=== PATIENT | male | born 1960 | race Caucasian/White ===

== ENCOUNTER 2020-12-01 08:03 | Outpatient (CLI) | payer OTHER ==
--- NOTE | 2020-12-01 15:00 | XRAY Report ---
PROCEDURE: Knee Standing BILAT INDICATIONS: BILATERAL KNEE JOINT PAIN TECHNIQUE: 3 views of the right knee, and 3 views of the left knee. COMPARISON: None. FINDINGS: Bones: No acute fractures or dislocations. No suspicious bony lesions. Joint spaces appear normal with weightbearing. There is mild bilateral medial compartment narrowing. Chondrocalcinosis is noted on the right. Minimal appearance of periarticular osteophytes are present. No erosions are present. Minimal to mild bilateral patellofemoral compartment narrowing is present. Soft tissues: No knee joint effusions. No suspicious soft tissue calcification. IMPRESSION: Early degenerative changes suggestive of arthritis most notable in the medial and patellofemoral comp artments bilaterally. Reviewed by: Delaney Hernández MD on 12/01/2020 2:59 PM PST Approved by: Delaney Hernández MD on 12/01/2020 2:59 PM PST Station ID: [id number]
== END 2020-12-01 23:59 | disposition home or self-care (01) ==
LOC: DI.N 08:03
PROVIDERS: ATTEND Physician Assistant
DX: M17.0 Bilateral primary osteoarthritis of knee (principal)

== ENCOUNTER 2020-12-22 15:27 | Outpatient (CLI) | payer OTHER ==
--- NOTE | 2020-12-23 08:57 | Mammography Report ---
MALE BILATERAL DIGITAL SCREENING MAMMOGRAM 3D/2D: 12/22/2020 CLINICAL: Routine screening. Comparison is made to exams dated: 01/01/2019 mammogram and 11/14/2016 mammogram - [facility]. No significant masses, calcifications, or other findings are seen in either breast. There has been no significant interval change. IMPRESSION: NEGATIVE There is no mammographic evidence of malignancy. A 1 year screening mammogram is recommended. This exam was interpreted at Station ID: [id number]. NOTE: For mammograms, a report in lay terms will be sent to the patient. Approximately 15% of breast malignancies will not be visualized mammographically. In the management of a palpable breast mass, a negative mammogram must not discourage biopsy of a clinically suspicious lesion. Electronically Signed By: Juan Jose bruce/ana:12/22/2020 16:21:50 ACR BI-RADS Category 1: Negative 3341F PARENCHYMAL PATTERN: (A) - The breast(s) demonstrate(s) scattered fibroglandular densities. BI-RADS CATEGORY: (1) - 1 RECOMMENDATION: (ANNUAL) - Recommend routine annual screening mammography. [id number] 1 year screening LATERALITY: (B)
== END 2020-12-22 15:28 | disposition home or self-care (01) ==
LOC: DI.N 15:27 → EDSEX 15:27 → DI.N 15:28
PROVIDERS: ATTEND Internal Medicine
DX: Z12.31 Encounter for screening mammogram for malignant neoplasm of breast (principal)

== ENCOUNTER 2022-01-25 15:31 | Outpatient (CLI) | payer OTHER ==
--- NOTE | 2022-01-26 09:34 | Mammography Report ---
BILATERAL DIGITAL SCREENING MAMMOGRAM 3D/2D: 01/25/2022 CLINICAL: Family history of breast cancer. Routine screening. Comparison is made to exams dated: 12/22/2020 mammogram - [facility], 01/01/2019 mamm ogram, and 11/14/2016 mammogram - [facility]. There are scattered fibroglandular elemen ts in both breasts. No significant masses, calcifications, or other findings are seen in either breast. There has been no significant interval change. IMPRESSION: NEGATIVE There is no mammographic evidence of malignancy. A 1 year screening mammogram is recommended. This exam was interpreted at Station ID: [id number]. NOTE: For mammograms, a report in lay terms will be sent to the patient. Approximately 15% of breast malignancies will not be visualized mammographically. In the management of a palpable breast mass, a negative mammogram must not discourage biopsy of a clinically suspicious lesion. Electronically Signed By: Lizett joy/ana:01/25/2022 17:28:27 ACR BI-RADS Category 1: Negative 3341F PARENCHYMAL PATTERN: (A) - The breast(s) demonstrate(s) scattered fibroglandular densities. BI-RADS CATEGORY: (1) - 1 RECOMMENDATION: (ANNUAL) - Recommend routine annual screening mammography. [id number] 1 year screening LATERALITY: (B)
== END 2022-01-25 15:32 | disposition home or self-care (01) ==
LOC: DI.N 15:31
DX: Z12.31 Encounter for screening mammogram for malignant neoplasm of breast (principal); Z80.3 Family history of malignant neoplasm of breast

== ENCOUNTER 2022-08-24 11:42 | Outpatient (CLI) | payer OTHER | END 2022-08-24 11:43 | disposition critical access hospital (66) | LOC: EMS 11:42 | DX: R40.4 Transient alteration of awareness (principal); R53.83 Other fatigue; R53.1 Weakness; R21 Rash and other nonspecific skin eruption; L29.9 Pruritus, unspecified | CPT/HCPCS: A0425; A0429 ==

== ENCOUNTER 2023-09-26 15:51 | Outpatient (CLI) | payer OTHER ==
--- NOTE | 2023-09-27 15:52 | Mammography Report ---
BILATERAL DIGITAL SCREENING MAMMOGRAM 3D/2D: 09/26/2023 CLINICAL: Routine screening. Family history of breast cancer. Comparison is made to exams dated: 01/25/2022 mammogram, 12/22/2020 mammogram - [facility], 01/01/2019 mammogram, and 11/14/2016 mammogram - [facility]. There are scattered areas of fibroglandular density in both breasts (category b / 25%-50% glandular t issue). There are benign vascular calcifications in both breasts. No significant masses, calcifications, or other findings are seen in either breast. There has been no significant interval change. IMPRESSION: BENIGN There is no mammographic evidence of malignancy. A 1 year screening mammogram is recommended. Based on the Tyrer Cuzick model (a risk assessment model) the patients lifetime risk is 10.4% and he r 10 year risk is 4.9%. According to the ACR, ACS, and NCCN guidelines, an annual breast MRI exam nicol ng with mammogram is recommended if the patients lifetime risk is 20% or greater. This exam was interpreted at Station ID: [id number]. NOTE: For mammograms, a report in lay terms will be sent to the patient. Approximately 15% of breast malignancies will not be visualized mammographically. In the management of a palpable breast mass, a negative mammogram must not discourage biopsy of a clinically suspicious lesion. Electronically Signed By: Lizett joy/ana:09/27/2023 08:13:22 letter sent: No_Letter ACR BI-RADS Category 2: Benign Finding(s) 3342F PARENCHYMAL PATTERN: (A) - The breast(s) demonstrate(s) scattered fibroglandular densities. BI-RADS CATEGORY: (2) - 2 Mammogram [id number] 1 year screening LATERALITY: (B)
== END 2023-09-26 15:52 | disposition home or self-care (01) ==
LOC: DI.N 15:51
DX: Z12.31 Encounter for screening mammogram for malignant neoplasm of breast (principal); Z80.3 Family history of malignant neoplasm of breast; R92.323 Mammographic fibroglandular density, bilateral breasts